=== PATIENT | male | born 2005 | race Caucasian/White ===

== ENCOUNTER 2023-12-11 22:19 | Emergency (ER) | payer OTHER ==
[2023-12-11 22:27] VITALS: TEMP 99
--- NOTE | 2023-12-11 23:11 | XR ---
EXAMINATION TYPE: XR chest 2V DATE OF EXAM: 12/11/2023 COMPARISON: NONE HISTORY: Cough and pain. TECHNIQUE: Frontal and lateral views of the chest are obtained. FINDINGS: There is no focal air space opacity, pleural effusion, or pneumothorax seen. The cardiac silhouette size is within normal limits. The osseous structures are intact. Overlying EKG leads are present. IMPRESSION: No acute process.
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
[2023-12-11] MEDS: ACETAMINOPHEN TAB 325 MG TAB PO STA (23:40)
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
[2023-12-12 00:43] VITALS: BP 122/68; PULSE 56; RESP 19
== END 2023-12-12 00:33 | disposition home or self-care (01) ==
LOC: EC 22:19
DX: M25.561 Pain in right knee (principal); R07.89 Other chest pain; R00.1 Bradycardia, unspecified; F17.290 Nicotine dependence, other tobacco product, uncomplicated; V48.6XXA Car passenger injured in noncollision transport accident in traffic accident, initial encounter; Y92.410 Unspecified street and highway as the place of occurrence of the external cause
CPT/HCPCS: 71046; 93005; 99285